=== PATIENT | female | born 1950 | race Caucasian/White ===

== ENCOUNTER 2016-10-20 05:24 | Day surgery (SDC) | payer MEDICARE, OTHER ==
[~2016-10-20] VITALS: Ht 160 cm; Wt 65.7 kg
[2016-10-20 07:08] VITALS: Ht 160 cm; Wt 65.7 kg
[2016-10-20] MEDS ORDERED: MTF1000T PO (07:16)
[2016-10-20] MEDS ORDERED: SIMV5TAB50 PO (07:16)
[2016-10-20] MEDS ORDERED: CALCIUM (07:16)
[2016-10-20] MEDS ORDERED: GLIP-95 PO (07:16)
[2016-10-20] MEDS ORDERED: LISI10TA2 PO (07:16)
[2016-10-20] MEDS ORDERED: ASPI-699 PO (07:16)
[2016-10-20] MEDS ORDERED: SITA100T8 PO (07:16)
[2016-10-20 07:25] VITALS: BP 106/54; PULSE 88; RESP 19
[2016-10-20] MEDS ORDERED: MIDAZOLAM 1 MG/ML 2 ML INJ ONE (08:21)
[2016-10-20] MEDS ORDERED: FENTAnyl 50 MCG/ML VIAL ONE (08:21)
[2016-10-20 08:47] VITALS: BP 105/54; PULSE 79; RESP 19
--- NOTE | 2016-11-13 05:02 | GILP ---
DATE OF PROCEDURE: 11/05/2016 PREOPERATIVE DIAGNOSES: 1. Positive occult blood in stool. 2. Screening colonoscopy. POSTOPERATIVE DIAGNOSES: 1. Colonoscopy all the way to the cecum. 2. Small sigmoid colon polyp was removed using the biopsy forceps. 3. Internal hemorrhoids. PROCEDURE PERFORMED: Colonoscopy and biopsy. SURGEON: Patricia Costello MD. INDICATION FOR PROCEDURE: Ms. Tiffany Nicole is a 46-year-old female patient who was noted to have positive occult blood in stool. She also needed a screening colonoscopy. The procedure and possible complications were well explained to the patient. She understood and consented to the procedure. DESCRIPTION OF PROCEDURE: Under the influence of fentanyl and Versed the colonoscope was carefully introduced in the rectum and under direct vision it was advanced all the way to the cecum. Findings, the patient had a small sigmoid colon polyp and it was removed using the biopsy forceps. The patient was noted to have internal hemorrhoids. She tolerated the procedure very well and there was no complication from the procedure. At the end of the procedure she was awake with stable vital signs and she was discharged home in the care of her family. IMPRESSION: 1. Colonoscopy all the way to the cecum. 2. Small sigmoid colon polyp was removed using the biopsy forceps. 3. Internal hemorrhoids. PLAN: 1. Await histopathology. 2. Next screening colonoscopy in 5 years. Dictated By: MD CHAPARRITA Friend/lupe/ye /Document#: [id number] CC: Patricia Costello MD;*[facility]*
== END 2016-10-20 10:28 | disposition home or self-care (01) ==
LOC: GIL 05:24
PROVIDERS: ATTEND Internal Medicine Gastroenterology
DX: D12.5 Benign neoplasm of sigmoid colon (principal); K64.8 Other hemorrhoids
CPT/HCPCS: 45380; 88305; J2250; J3010